=== PATIENT | male | born 1990 | race Caucasian/White ===

== ENCOUNTER 2019-01-14 15:01 | Emergency (ER) | payer SELFPAY ==
[~2019-01-14] VITALS: Ht 160 cm; Wt 62.1 kg
[2019-01-14 15:20] VITALS: Ht 160 cm; Wt 62.1 kg
[2019-01-14 18:07] VITALS: BP 107/70
== END 2019-01-14 18:07 | disposition home or self-care (01) ==
LOC: ED 15:01
DX: L03.012 Cellulitis of left finger (principal); J45.909 Unspecified asthma, uncomplicated
CPT/HCPCS: J2001